=== PATIENT | female | born 1945 | race Caucasian/White ===

== ENCOUNTER → 2021-02-15 | Outpatient (CLI) | payer MEDICARE, BC ==
--- NOTE | 2021-02-16 10:08 | RAD ---
PROCEDURE: MG BILAT SCREEN+MAURI HISTORY: The patient is 75 years old and is seen for Reason: SCREENING / Spl. Instructions: / Histor y: . COMPARISON: December 25, 2018 and December 12, 2017 TECHNIQUE: CC and MLO views of both breasts were obtained. Images were processed by the [employer] computer-aided detection system. DENSITY: The breast parenchyma is heterogeneously dense. This may lower the sensitivity of mammograph y. FINDINGS: Right breast: Focal asymmetry within the right retroareolar breast mid to posterior depth approximate ly 5.5 cm from the nipple. Benign-appearing calcifications. Left breast: Multiple exams or mass within the left posterior upper outer breast 2 to 3:00 position a pproximately 7.2 cm from the nipple. Benign-appearing calcifications. IMPRESSION: 1. RIGHT mid breast focal asymmetry. Recommend spot MLO and CC compression views. Ultrasound may als o be indicated. 2. LEFT posterior breast well-circumscribed mass. Recommend ultrasound to further evaluate. BI-RADS category 0 Incomplete: Needs additional imaging evaluation Patient entered into a reminder system for annual screening mammogram. Electronically signed by: Say Haney DO (02/16/2021 10:05 AM) [id number]
== END ==
LOC: MAMMO 11:23
PROVIDERS: ATTEND Internal Medicine
DX: Z12.31 Encounter for screening mammogram for malignant neoplasm of breast (principal)
CPT/HCPCS: 77063; 77067

== ENCOUNTER → 2021-03-15 | Outpatient (CLI) | payer MEDICARE, BC ==
--- NOTE | 2021-03-15 13:59 | RAD ---
EXAM: Right breast diagnostic mammogram; bilateral breast sonogram. HISTORY: 75-year-old female presents for evaluation of nodularity within both breasts demonstrated on a mammogram dated 02/15/2021. TECHNIQUE: Full-field digital and spot compression views of the right breast are obtained. Sonographi c imaging of both breasts targeted to sites of mammographic nodularity was also performed. COMPARISON: 02/15/2021 BREAST PARENCHYMAL DENSITY: Level C - Heterogeneously dense. FINDINGS: There is a persistent nodular density within the central right breast at mid depth with the additional mammographic views. There are benign calcifications. There is no architectural distortion . Sonographic imaging of the right breast demonstrates a 6 mm simple cyst at the 10:00 position 5 cm fr om the nipple. There is also a 4 mm cyst with suspected internal debris at the 11:00 position 5 cm th e nipple. . There are dilated ducts within the right shoulder right breast. No intraductal lesion is seen. There are benign axillary lymph nodes. Sonographic imaging of the left breast demonstrates a 7 mm cyst at the 3:00 position 7 cm from the ni pple. There is a 4 mm benign fibrocystic lesion or focal fibrocystic change in the retroareolar locat ion. There are benign axillary lymph nodes. IMPRESSION: 1. Small benign cysts within both breasts, corresponding with areas of mammographic nodularity of con cern. There is also a 4 mm benign fibrocystic lesion or focal fibrocystic change within the left retr oareolar location and dilated ducts within the right subareolar location. There is no persistent susp icious mammographic or sonographic finding. 2. BI-RADS Category 2: Benign finding(s). RECOMMENDATION: Annual mammography is recommended. If your mammogram demonstrates that you have dense breast tissue, which could hide abnormalities, and if you have other risk factors for breast cancer that have been identified, you might benefit from s upplemental screening tests that may be suggested by your ordering physician. Dense breast tissue, i n and of itself, is a relatively common condition. This information is not provided to cause undue c oncern, but rather to raise your awareness and to promote discussion with your physician regarding th e presence of other risk factors, in addition to dense breast tissue. A report of your mammography re sults will be sent to you and your physician. You should contact your physician if you have any ques tions or concerns regarding this report. Mammography is a sensitive method for finding small breast cancers, but it does not detect them all a nd is not a substitute for careful clinical examination. A negative mammogram does not negate a clin ically suspicious finding and should not result in delay in biopsying a clinically suspicious abnorma lity. PQRS compliance statement - Patient information was entered into a reminder system with a target due date for the next mammogram. "Our facility is accredited by the [employer] Mammography [employer]." Electronically signed by: Laly Cook MD (03/15/2021 1:56 PM) [id number]
== END ==
LOC: MAMMO 12:28
PROVIDERS: ATTEND Internal Medicine
DX: N60.02 Solitary cyst of left breast (principal); N60.01 Solitary cyst of right breast; N64.89 Other specified disorders of breast
CPT/HCPCS: 77065; 76642-50